=== PATIENT | female | born 1940 | race Caucasian/White ===

== ENCOUNTER → 2018-12-31 | Outpatient (CLI) | payer MEDICARE, OTHER ==
[~2018-12-31] MED LIST: ACET500 PO; ALL DAY ALLERGY10 M1 PO; ASPI81CH; Aspirin EC81 MG PO; B Complex #11 EACH PO; BRIM.15SO OD; CALCAVITDA PO; Coenzyme Q10200 M2 PO; Coq-1030 MG; FAMO20 PO; FERSU90EL; FEXPSEER; FISH OIL 1,0001 EAC1 PO; FISH1000 PO; FOLI1 PO; HAIR SKIN NAIL1 EACH PO; HIGH POTENCY I134 MG PO; HYDACE5 PO; Hair, Skin & N1 EACH; LISI5; LISI5 PO; MAGNESIUM400 MG PO; MAGOXI400; METAMUCIL FIBER2 GM PO; METO50 PO; MULVITMINF PO; OMEPRAZOLE20 MG PO; OSTEO BI-FLEX1 EAC2; OSTEO BI-FLEX1 EAC4 PO; Omeprazole20 M1; PRIM50 PO; PROPANOLOL; SUCR1 PO; Support-5001 EACH; TIMO.5OPS OD; VITAMIN B-12
[2018-12-31 20:47] LABS: Adenovirus F 40/41 Not Detected (NOT DETECT); Astrovirus Not Detected (NOT DETECT); Campylobacter Sp Not Detected (NOT DETECT); Cryptosporidium Not Detected (NOT DETECT); Cyclospora Cayetanensis Not Detected (NOT DETECT); E. Coli O157 Not Detected (NOT DETECT); Entamoeba Histolytica Not Detected (NOT DETECT); Enteroaggregative E. coli-EAEC Not Detected (NOT DETECT); Enteropathogenic E. coli-EPEC Not Detected (NOT DETECT); Enterotoxigenic E. coli-ETEC Not Detected (NOT DETECT); Giardia Lamblia Not Detected (NOT DETECT); Norovirus GI/GII Not Detected (NOT DETECT); Plesiomonas Shigelloides Not Detected (NOT DETECT); Rotavirus A Not Detected (NOT DETECT); Salmonella Sp Not Detected (NOT DETECT); Sapovirus Not Detected (NOT DETECT); Shiga Toxin-prod E. coli-STEC Not Detected (NOT DETECT); Shigella/Enteroin E. coli-EIEC Not Detected (NOT DETECT); Vibrio Cholerae Not Detected (NOT DETECT); Vibrio Sp Not Detected (NOT DETECT); Yersinia Enterocolitica Detected (NOT DETECT)
== END | disposition home or self-care (01) ==
LOC: LAB EV 12:45
PROVIDERS: Internal Medicine Gastroenterology
DX: R19.7 Diarrhea, unspecified (principal); R19.4 Change in bowel habit
CPT/HCPCS: 0097U; 87324

== ENCOUNTER → 2019-01-02 | Outpatient (CLI) | payer MEDICARE, OTHER ==
[2019-01-04 13:43] LABS: Stool Occult Bld Immuno 1 Negative (NEGATIVE); Stool Occult Bld Immuno 2 Positive (NEGATIVE)
== END | disposition home or self-care (01) ==
LOC: LAB EV 11:20
PROVIDERS: Internal Medicine Gastroenterology
DX: R19.4 Change in bowel habit (principal); R19.7 Diarrhea, unspecified
CPT/HCPCS: 82274

== ENCOUNTER 2019-01-22 13:00 | Day surgery (SDC) | payer MEDICARE, OTHER ==
[~2019-01-22] VITALS: Ht 149.9 cm; Wt 85.7 kg
--- NOTE | 2019-01-22 15:11 | NUR ---
01/22/19 1511 Bronwyn Yan V PT REPORTS SYMPTOMS OF ACID REFLUX ONCE PLACED ON HER L SIDE IN PROCEDURE ROOM. DR COSTELLO REQUESTS PT TO RECIEVE 15ML OF BICITRA MIXED WITH 15ML OF WATER; ADMINISTERED TO PT, PO, IN ENDO ROOM AT 1503.
== END 2019-01-22 16:05 | disposition home or self-care (01) ==
LOC: ORSCSDS 13:00
PROVIDERS: Internal Medicine Gastroenterology
PROC: 0DBP8ZX Excision of Rectum, Via Natural or Artificial Opening Endoscopic, Diagnostic (ICD-10-PCS; principal; 2019-01-22 14:30)
PROC: 0DBH8ZX Excision of Cecum, Via Natural or Artificial Opening Endoscopic, Diagnostic (ICD-10-PCS; principal; 2019-01-22 14:30)
PROC: 0DBE8ZX Excision of Large Intestine, Via Natural or Artificial Opening Endoscopic, Diagnostic (ICD-10-PCS; principal; 2019-01-22 14:30)
DX: R19.5 Other fecal abnormalities (principal); R19.7 Diarrhea, unspecified; D12.0 Benign neoplasm of cecum; D12.8 Benign neoplasm of rectum; I10 Essential (primary) hypertension; K21.9 Gastro-esophageal reflux disease without esophagitis; G47.33 Obstructive sleep apnea (adult) (pediatric); Z87.891 Personal history of nicotine dependence; E66.01 Morbid (severe) obesity due to excess calories; Z68.38 Body mass index [BMI] 38.0-38.9, adult; Z79.899 Other long term (current) drug therapy; Z79.82 Long term (current) use of aspirin
CPT/HCPCS: 88305; J2250; J2405; J2704

== ENCOUNTER → 2019-04-22 | Outpatient (CLI) | payer MEDICARE, OTHER | LOC: LAB SHORT 16:00 → LAB EV 16:00 | DX: L60.3 Nail dystrophy (principal) | CPT/HCPCS: 87070; 87205 ==

== ENCOUNTER 2019-06-04 06:11 | Day surgery (SDC) | payer MEDICARE, OTHER ==
[~2019-06-04] VITALS: Ht 149.9 cm; Wt 86.1 kg
[~2019-06-04 06:11] MED LIST changes: +Aspir 8181 MG PO; +B-COMPLEX WITH1 EAC1 PO; +CO Q-10100 MG PO; +MAGNESIUM PO; +METO25ER PO; +METO50ER PO; +OMEP20ER PO; +OSTEO BI-FLEX1 EAC2 PO; +ZYRTEC10 MG
--- NOTE | 2019-06-04 07:00 | NUR ---
06/04/19 0700 Francine Lee PT HAS CHRONIC BACK PAIN R/T ARTHRITIS
== END 2019-06-04 08:08 | disposition home or self-care (01) ==
LOC: ORSCSDS 06:11
PROVIDERS: Ophthalmology
PROC: 08RK3JZ Replacement of Left Lens with Synthetic Substitute, Percutaneous Approach (ICD-10-PCS; principal; 2019-06-04 07:30)
DX: H25.12 Age-related nuclear cataract, left eye (principal); I10 Essential (primary) hypertension; G47.33 Obstructive sleep apnea (adult) (pediatric); Z79.82 Long term (current) use of aspirin; E66.9 Obesity, unspecified; Z68.38 Body mass index [BMI] 38.0-38.9, adult; Z79.899 Other long term (current) drug therapy
CPT/HCPCS: J2001; J2250; J3010; J3301; J7040; V2632

== ENCOUNTER 2019-07-09 08:38 | Day surgery (SDC) | payer MEDICARE, OTHER ==
[~2019-07-09] VITALS: Ht 149.9 cm; Wt 79.9 kg
== END 2019-07-09 10:25 | disposition home or self-care (01) ==
LOC: ORSCSDS 08:38
PROVIDERS: Ophthalmology
PROC: 08RJ3JZ Replacement of Right Lens with Synthetic Substitute, Percutaneous Approach (ICD-10-PCS; principal; 2019-07-09 10:00)
DX: H25.11 Age-related nuclear cataract, right eye (principal); K21.9 Gastro-esophageal reflux disease without esophagitis; E66.9 Obesity, unspecified; Z68.35 Body mass index [BMI] 35.0-35.9, adult; Z79.82 Long term (current) use of aspirin; Z79.899 Other long term (current) drug therapy
CPT/HCPCS: J2001; J2250; J3010; J3301; J7040; V2632

== ENCOUNTER 2019-12-09 08:07 | Day surgery (SDC) | payer MEDICARE, OTHER ==
[~2019-12-09] VITALS: Ht 149.9 cm; Wt 84.0 kg
--- NOTE | 2019-12-09 08:55 | NUR ---
PT ARRIVED TO RADIOLOGY FOR CTA. IV PLACED TO RIGHT AC. HEART RATE 68. WILL MEDICATE WITH LOPRESSOR ORDERED.
--- NOTE | 2019-12-09 09:08 | NUR ---
1 DOSE 5MG LOPRESSOR GIVEN, HEART RATE AROUDN 65-66. WILL GIVE ADDITIONAL DOSE ORDERED.
--- NOTE | 2019-12-09 09:12 | NUR ---
2ND DOSE METOPROLOL GIVEN. HR 63
--- NOTE | 2019-12-09 09:23 | NUR ---
TO CT AT 0909
--- NOTE | 2019-12-09 09:29 | NUR ---
0920: TO CT. 3RD DOSE METOPROLOL 5MG GIVEN IV ORDERED.
--- NOTE | 2019-12-09 09:35 | NUR ---
0935: 1 DOSE NITRO GIVEN SUBLINGUAL. PT FABRIZIO PROCEDURE WELL.
--- NOTE | 2019-12-09 10:08 | NUR ---
Discharge instructions reviewed with patient. Patient verbalizes understanding. Copy given to patient to take home. Discharged ambulated with FWW to private car for ride home.
== END 2019-12-09 23:07 | disposition home or self-care (01) ==
LOC: ORD 08:07 → CT 08:07 → ORD 08:30 → CT 09:00 → ORD 23:07
DX: I25.10 Atherosclerotic heart disease of native coronary artery without angina pectoris (principal); I10 Essential (primary) hypertension; E78.5 Hyperlipidemia, unspecified; E66.9 Obesity, unspecified; K21.9 Gastro-esophageal reflux disease without esophagitis; G47.33 Obstructive sleep apnea (adult) (pediatric); Z79.82 Long term (current) use of aspirin; Z79.899 Other long term (current) drug therapy; Z87.891 Personal history of nicotine dependence; Z88.8 Allergy status to other drugs, medicaments and biological substances; Z68.38 Body mass index [BMI] 38.0-38.9, adult; I35.0 Nonrheumatic aortic (valve) stenosis
CPT/HCPCS: 75574; Q9967

== ENCOUNTER 2020-03-04 11:33 | Day surgery (SDC) | payer MEDICARE, OTHER ==
[~2020-03-04] VITALS: Ht 149.9 cm; Wt 85.7 kg
[2020-03-04] MEDS ORDERED: RANO500T PO (12:04)
== END 2020-03-04 13:58 | disposition home or self-care (01) ==
LOC: ORSCSDS 11:33
PROVIDERS: Podiatrist
PROC: 0SNP0ZZ Release Right Toe Phalangeal Joint, Open Approach (ICD-10-PCS; principal; 2020-03-04 12:30)
DX: M20.41 Other hammer toe(s) (acquired), right foot (principal); M79.671 Pain in right foot; I10 Essential (primary) hypertension; K21.9 Gastro-esophageal reflux disease without esophagitis; E66.01 Morbid (severe) obesity due to excess calories; Z68.38 Body mass index [BMI] 38.0-38.9, adult
CPT/HCPCS: J0690; J2250; J2704; J3010; J7120

== ENCOUNTER 2020-11-05 11:51 | Day surgery (SDC) | payer MEDICARE, OTHER ==
[~2020-11-05] VITALS: Ht 149.9 cm; Wt 83.0 kg
[~2020-11-05 11:51] MED LIST changes: +FERSU300; +RANO500T PO
--- NOTE | 2020-11-05 12:42 | NUR ---
11/05/20 1242 SONAL LUKE ONE ATTEMPT BY CESAR IN RW VALVE SECOND ATTEMPT BY CESAR IN LH MISSED ONE SUCCESSFUL BY RN IN RAC PT TOW
== END 2020-11-05 15:10 | disposition home or self-care (01) ==
LOC: ORSCSDS 11:51
PROVIDERS: Internal Medicine Gastroenterology
PROC: 0DB58ZX Excision of Esophagus, Via Natural or Artificial Opening Endoscopic, Diagnostic (ICD-10-PCS; principal; 2020-11-05 13:30)
DX: K22.70 Barrett's esophagus without dysplasia (principal); G47.30 Sleep apnea, unspecified; K44.9 Diaphragmatic hernia without obstruction or gangrene; I10 Essential (primary) hypertension; G47.33 Obstructive sleep apnea (adult) (pediatric); K21.9 Gastro-esophageal reflux disease without esophagitis; Z68.37 Body mass index [BMI] 37.0-37.9, adult; E66.9 Obesity, unspecified; Z79.899 Other long term (current) drug therapy
CPT/HCPCS: 88305; J2704; J3010; J7120

== ENCOUNTER 2025-01-28 10:17 | Day surgery (SDC) | payer MEDICARE, OTHER ==
[2025-01-28] VITALS (7 sets, daily range): BP systolic 147–177; BP diastolic 78–126
[~2025-01-28] VITALS: Ht 149.9 cm; Wt 73.0 kg
[~2025-01-28 10:17] MED LIST changes: +ALLEGRA ALLERG180 MG PO; +CLOP75 PO; +EZET10 PO; +FAMO10 PO; -FERSU300; +FERSU300 PO; +LISI10 PO; +MELATONIN5 M1 PO; +PROP160ER PO; +TRAZ100 PO
[2025-01-28] MEDS ORDERED: HAIR, SKIN AND1 EAC3 PO (10:56)
[2025-01-28] MEDS ORDERED: CALCIUM 250 MG1 EACH PO (10:58)
[2025-01-28] MEDS ORDERED: ARTIFICIAL TEAR15 M2 BOTHEYES (10:59)
[2025-01-28] MEDS ORDERED: Heparin Sodium 1000 Units/ML 10ML MDV ONE ×2 (11:02→15:08)
[2025-01-28] MEDS ORDERED: Nitroglycerin 2 MG/20 ML BTL ONE (11:02)
[2025-01-28] MEDS ORDERED: Verapamil HCL 2.5 MG/ML 2ML Injection ONE (11:02)
[2025-01-28] MEDS ORDERED: NS 0 ML IV ONE (11:02)
[2025-01-28] MEDS ORDERED: NS 250 ML IV ONE (11:02)
[2025-01-28] MEDS ORDERED: NS 1,000 ML IV ONE ×2 (11:19→13:02)
[2025-01-28] MEDS ORDERED: Midazolam HCl 1MG / ML 2ML Vial ONE (13:02)
[2025-01-28] MEDS ORDERED: FentaNYL Citrate 50 MCG/ML 2 ML Injection ONE (13:02)
[2025-01-28] MEDS ORDERED: NS 500 ML IV ONE (15:08)
--- NOTE | 2025-01-28 17:31 | NUR ---
RETURNED EARLIER, REPORT RECEIVED IN PROCEDURE, FOLLOWED PATIENT TO RECOVERY, VSS. GOOD PULSES PROXIMAL/DISTAL, VOIDED IN BED AND CHANGED BRIEF/CHUX PAD, PLACED [place], WORKING AT PRESENT. BROUGHT TEA EARLIER AND WARM BLANKETS. DISCUSSED D/C INSTRUCTIONS, D/C MEDS, FOLLOW UP APPOINTMENT PLAN FOR BEING CALLED BY FRONT OFFICE SEED ANALYST, NO CHANGES TO MEDICATIONS. DEFLATED TR BAND EARLIER AND OOZING NOTED, REINFLATED TO 10 ML AT PRESENT, D/C OTHERWISE PENDING.
--- NOTE | 2025-01-28 18:25 | NUR ---
TR BAND REMOVED EARLIER AFTER OOZING SUBSIDED, CLOTH DOT PLACED, IV REMOVED, ASSISTED PATIENT AND PARAS VO ASSISTED TO GET PATIENT DRESSED, NEW BRIEF PLACED, TRANSFER ASSIST TO WHEELCHAIR, ALL BELONGINGS GATHERED, TAKEN BY W/C AND MET SON AT PATIENT ENTRANCE, LEFT AT 1820 WITH SON, LEFT UNIT AT 1815.
== END 2025-01-28 18:15 | disposition home or self-care (01) ==
LOC: MHTC 10:17
DX: I08.0 Rheumatic disorders of both mitral and aortic valves (principal); I25.10 Atherosclerotic heart disease of native coronary artery without angina pectoris; I11.9 Hypertensive heart disease without heart failure; E78.5 Hyperlipidemia, unspecified; E66.9 Obesity, unspecified; K21.9 Gastro-esophageal reflux disease without esophagitis; I25.2 Old myocardial infarction; Z91.040 Latex allergy status; Z79.899 Other long term (current) drug therapy; Z88.8 Allergy status to other drugs, medicaments and biological substances; Z88.5 Allergy status to narcotic agent; Z88.6 Allergy status to analgesic agent
CPT/HCPCS: 76937; 85347; 92978; 93454; 99152; 99153; C1753; C1769; C1887; C1894; J1644; J2250; J3010; J7030; J7040; J7050; Q9967